=== PATIENT | female | born 1935 | race Caucasian/White ===

== ENCOUNTER 2016-04-01 15:37 | Outpatient (CLI) | payer MEDICARE, OTHER ==
[2012-02-18 05:46] VITALS: BP 111/60
== END 2016-04-01 15:40 ==
LOC: LAB 15:37
PROVIDERS: ATTEND Internal Medicine Cardiovascular Disease
DX: Z51.81 Encounter for therapeutic drug level monitoring (principal); Z79.01 Long term (current) use of anticoagulants; I48.2 Chronic atrial fibrillation
CPT/HCPCS: 36415; 85610

== ENCOUNTER 2016-04-07 15:21 | Outpatient (CLI) | payer MEDICARE, OTHER ==
[2012-02-18 05:46] VITALS: BP 111/60
== END 2016-04-07 15:22 ==
LOC: LAB 15:21
PROVIDERS: ATTEND Internal Medicine Cardiovascular Disease
DX: Z51.81 Encounter for therapeutic drug level monitoring (principal); Z79.01 Long term (current) use of anticoagulants; I48.1 Persistent atrial fibrillation
CPT/HCPCS: 36415; 85610

== ENCOUNTER 2016-06-06 11:38 | Outpatient (CLI) | payer MEDICARE, OTHER ==
[2012-02-18 05:46] VITALS: BP 111/60
== END 2016-06-06 11:40 ==
LOC: LAB 11:38
PROVIDERS: ATTEND Internal Medicine Cardiovascular Disease
DX: Z51.81 Encounter for therapeutic drug level monitoring (principal); Z79.01 Long term (current) use of anticoagulants; I48.2 Chronic atrial fibrillation
CPT/HCPCS: 36415; 85610